=== PATIENT | female | born 1970 | race Caucasian/White ===

== ENCOUNTER 2020-03-26 04:20 | Emergency (ER) | payer OTHER, SELFPAY ==
[2020-03-26 04:23] VITALS: BP 152/106; PULSE 120; RESP 20; TEMP 36.6; O2SAT 98
--- NOTE | 2020-03-26 04:28 | PC.NURSE ---
Patient seen running in the parking lot undressed. I went out to find patient and noticed belongings laying on the ground. It is approx 31 degrees outside. I noticed a patient in a blanket in the ob waiting room and called over to security and patient was in the ob waiting room. pt later brought over to the ed and placed in room 15. pt placed in green scrubs and routine labs witll be done.
--- NOTE | 2020-03-26 04:34 | PC.NURSE ---
pt left out ems doors.
--- NOTE | 2020-03-26 04:35 | ED.GENADULT ---
HPI - General Adult General Chief complaint: Psychiatric Symptoms Stated complaint: other Time Seen by Provider: 03/26/20 04:30 History of Present Illness HPI narrative: Patient is a 49-year-old female who presents to the ER from [facility] with concern for psychiatric issues. Patient apparently walked into their department naked. Patient reports that she drove herself here in her van and removed her clothes because she wanted to strip herself from the pressures of her old life. She is alert and oriented x3. She denies any hallucinations. She denies any thoughts of harm to self or others. Reports she has been living in her van for the last 2 days in [facility]. Reports she came here tonight because it is very cold she needs warm place to stay. Reports that she is not in danger. Reports she last spoke with her children around . Related Data Allergies Allergy/AdvReac Type Severity Reaction Status Date / Time No Known Allergies Allergy Verified 03/26/20 04:27 Review of Systems Review of Systems: All systems reviewed & are unremarkable except as noted in HPI and below Constitutional: Constitutional: Denies chills, Denies fever(s) and Denies weakness Cardiovascular: Cardiovascular: Denies chest pain and Denies radiating jaw, neck or arm pain Gastrointestinal: Gastrointestinal: Denies abdominal pain, Denies nausea and Denies vomiting Psychiatric: Psychiatric: Reports anxiety, Denies depression, Denies homicidal ideation and Denies suicidal ideation PMFSH Past Medical History Medical History (Updated 03/26/20 @ 04:42 by Crow Balderas MD) Healthy female adult Surgical History Surgical History (Updated 03/26/20 @ 04:38 by Crow Balderas MD) No history of previous surgery Social History Social History (Updated 03/26/20 @ 04:38 by Crow Balderas MD) Smoking status: Never smoker Exam Narrative: Exam Narrative: GENERAL: Well-appearing, well-nourished, and in no acute distress. HEAD: Normocephalic, atraumatic. ENT: Mucous membranes moist. CHEST: Speaking full sentences without distress. EXTREMITIES: Normal range of motion. Normal strength. SKIN: Warm, dry, no rash. NEURO: Alert and oriented x3. Clear speech. PSYCH: Normal mood and affect. Course Course Emergency Course: After initial evaluation and history taking patient decided she wanted to leave and got herself dressed and walked out of the department. Patient was oriented x3 not hallucinating and had no thoughts of harm toward self or others. I was unable to auscultate her lungs/heart or examine her abdomen prior to her departure. Despite patient's earlier odd behavior she is not demonstrating any self-harm behavior or other abnormal thought content. I cannot hold her against her will. Patient reports that the nurse earlier that her heart rate goes up when she is in hospitals. Patient had no complaints while in OB either. Vital Signs Vital signs: Vital Signs Temperature 97.8 F 03/26/20 04:23 Pulse Rate 120 H 03/26/20 04:23 Respiratory Rate 20 03/26/20 04:23 Blood Pressure 152/106 H 03/26/20 04:23 Pulse Oximetry 98 03/26/20 04:23 Temperature 97.8 F 03/26/20 04:23 Pulse Rate 120 H 03/26/20 04:23 Respiratory Rate 20 03/26/20 04:23 Blood Pressure 152/106 H 03/26/20 04:23 Pulse Oximetry 98 03/26/20 04:23 Medical Decision Making Vital Signs Vital Signs: Vital Signs Temperature 97.8 F 03/26/20 04:23 Pulse Rate 120 H 03/26/20 04:23 Respiratory Rate 20 03/26/20 04:23 Blood Pressure 152/106 H 03/26/20 04:23 Pulse Oximetry 98 03/26/20 04:23 Temperature 97.8 F 03/26/20 04:23 Pulse Rate 120 H 03/26/20 04:23 Respiratory Rate 20 03/26/20 04:23 Blood Pressure 152/106 H 03/26/20 04:23 Pulse Oximetry 98 03/26/20 04:23 Discharge Plan Discharge Clinical Impression: Malingering Patient Disposition: Elopement After Seen by Prov Follow-up/Referrals: [facility]
--- NOTE | 2020-03-26 04:35 | PC.NURSE ---
Patient agreeing to give urine sample as she is getting herself dressed in clothes/jewelry/coat and backpack-started pushing this RN and then bolted for the ambulance bay door. outbound telemarketing representative and Dr Balderas aware. Patient had adamently denied that she wanted to harm herself or anyone else prior to leaving and that she had no history of drug usage. She stated that her van was in the parking lot-that it had taken her as far as it could and that she has been living in it in [place] for the last 24-48 hours. Stated that she had seen her kids at [place] and told them that [place] from [place] cold. Patients gait was steady as she was running from the ER
== END 2020-03-26 05:11 | disposition left against medical advice (07) ==
LOC: ANHED 04:56
PROVIDERS: Emergency Provider Emergency Medicine
DX: Z76.5 Malingerer [conscious simulation] (principal)
CPT/HCPCS: 99281